=== PATIENT | male | born 1965 | race Caucasian/White ===

== ENCOUNTER 2024-01-21 05:55 | Day surgery (SDC) | payer OTHER ==
[2024-01-21] MEDS ORDERED: MARCAINE 0.5%-EPI 1:200,000 VL IJ ONE (05:56)
[2024-01-21 06:38] VITALS: RESP 16
[2024-01-21] MEDS: CEFAZOLIN 2 GM-D5W BAG** 2 GM/50 ML ML IV SCH (06:48)
[2024-01-21] MEDS: Lactated Ringers 1,000 ML IV SCH (06:48)
[2024-01-21] MEDS ORDERED: DIPRIVAN 200 MG/20 ML IV ONE (07:51)
[2024-01-21] MEDS ORDERED: Versed 2 MG/2 ML Injection ONE (07:51)
[2024-01-21] MEDS ORDERED: Xylocaine-Mpf 2% 5 Ml Vial ONE (07:51)
[2024-01-21] MEDS ORDERED: Zofran 4 MG/2 ML VIAL ONE (07:51)
[2024-01-21] MEDS ORDERED: Decadron 4 MG INJ ONE (07:51)
[2024-01-21] MEDS ORDERED: TORAdol 30 mg Injection ONE (07:51)
[2024-01-21] MEDS ORDERED: SUBLIMAZE 100 MCG/2 ML ONE ×2 (07:51→08:33)
[2024-01-21] MEDS ORDERED: Lactated Ringers 1,000 ML IV ONE (08:49)
[2024-01-21 10:07] VITALS: BP 128/81; PULSE 67; TEMP 97.2; O2SAT 94
--- NOTE | 2024-01-22 09:47 | OP ---
SURGERY DATE/TIME: 01/21/2024 0800 - 0900 PREOPERATIVE DIAGNOSIS: Torn left medial meniscus, chondromalacia of patella, left knee. POSTOPERATIVE DIAGNOSIS: Torn left medial meniscus, chondromalacia of patella, left knee, plus small medial plica. PROCEDURE: Arthroscopy, left knee, with partial medial meniscectomy, chondroplasty of patella, and incidental shaving of small plica. SURGEON: Nader Gonzalez II, DO. ANESTHESIA: General. DESCRIPTION OF PROCEDURE AND FINDINGS: The patient was identified and informed consent was obtained. The patient was taken to the operative suite and placed into the supine position on the operating table where the general anesthetic was administered. Once an appropriate level of anesthesia had been obtained, tourniquet was placed high on the left thigh and the left lower extremity was then placed in the knee tsang. The left lower extremity was then prepped and draped in the usual sterile fashion and a standard time-out was taken. The leg was then exsanguinated and tourniquet elevated to 350 mmHg. A standard superomedial portal was created with an 11 blade and the trocar and camera were placed in the joint. The joint was distended with the arthroscopic pump. An inferolateral portal was created with an 11 blade. The arthroscope was then placed in through a cannula. An 18-gauge spinal needle identified the level for the inferomedial portal which was also created with an 11 blade. The knee was now inspected in a systematic fashion. Suprapatellar pouch had no loose bodies or synovial hypertrophy. Undersurface of the patella had a very small area of grade 2 chondromalacia which was incidentally shaved. The patient also had a small medial plica which was also shaved. The gutters were inspected. No loose bodies. The patella was seated nicely within the femoral groove at about 30 degrees of flexion. Trochlear groove was noted to have no evidence of chondromalacia. The scope was placed into the medial compartment where a complex tear of the medial meniscus was encountered starting from the middle portion to the posterior horn, had both degenerative and a flap component. Meniscal tear was resected with the handheld biting instruments and shaved to a smooth transition with a shaver. No significant degenerative or chondromalacia changes noted on the femoral condyle or tibial plateau. Intercondylar notch region was inspected, and the anterior cruciate ligament was noted to be intact. The scope was placed into the lateral compartment where the lateral meniscus was probed throughout its entirety and noted to be intact. The femoral condyle and tibial plateau had no evidence of chondromalacia or degenerative changes. The knee was then reinspected and copiously irrigated. No further pathology identified. The instrumentation was removed and the portal sites were closed with interrupted 4-0 nylon suture. The knee was infiltrated with 30 mL of 0.25% Marcaine with epinephrine. Adaptic, 4 x 4's, and a standard postop arthroscopy dressing applied. The patient was then transferred to the cart and taken to the recovery room in satisfactory condition, having tolerated the procedure well.
== END 2024-01-21 10:25 | disposition home or self-care (01) ==
LOC: SDC 05:55
PROVIDERS: ATTEND Orthopaedic Surgery
DX: S83.242A Other tear of medial meniscus, current injury, left knee, initial encounter (principal); M22.42 Chondromalacia patellae, left knee
CPT/HCPCS: 29881; J0690; J1100; J1885; J2250; J2405; J2704; J3010